=== PATIENT | male | born 1950 | race African-American/Black ===

== ENCOUNTER 2017-03-29 11:07 | Inpatient (IN) | payer MEDICARE ==
[~2017-03-29] VITALS: Ht 182.9 cm; Wt 84.2 kg
[2017-03-29 11:58] LABS: HEMATOCRIT 40.1 % (39.2-51.8); HEMOGLOBIN 12.7 g/dL (13.7-18.0); WHITE BLOOD COUNT 5.1 x10^3/uL (3.4-10)
[2017-03-29] MEDS ORDERED: SODIUM CHLORIDE FLUSH 10ML SYR IVF ONE (12:00)
[2017-03-29 12:13] LABS: ASPARTATE AMINO TRANSFERASE 12 U/L (15-37); BLOOD UREA NITROGEN 16 mg/dL (7-18)
[2017-03-29 12:17] LABS: IS PT STATUS REG ER OR PRE ER? YES
[2017-03-29] MEDS ORDERED: SODIUM CHLORIDE FLUSH 10ML SYR IVF PRN (13:00)
[2017-03-29] MEDS ORDERED: ENALAPRILAT 1.25 MG/ML, 2ML IVPush PRN (14:00)
[2017-03-29] MEDS ORDERED: ONDANSETRON 2MG/ML, 2ML IVPush PRN (14:00)
[2017-03-29] MEDS ORDERED: BISACODYL 10 MG SUPP PR PRN (14:00)
[2017-03-29] MEDS ORDERED: POTASSIUM CHLORIDE 20 MEQ in SODIUM CHLORIDE 0.9% 250 ML IV ONE (14:00)
[2017-03-29] MEDS ORDERED: ONDANSETRON ODT 4 MG PO PRN (14:00)
[2017-03-29] MEDS ORDERED: HYDROcodone/APAP 5/325 TABLET PO PRN (14:00)
[2017-03-29] MEDS ORDERED: DOCUSATE 100 MG CAPSULE PO PRN (14:00)
[2017-03-29] MEDS ORDERED: ENOXAPARIN 40 MG/0.4 ML SQ SCH (14:00)
[2017-03-29] MEDS ORDERED: ACETAMINOPHEN 325 MG TABLET PO PRN (14:00)
[2017-03-29] MEDS ORDERED: TRAZODONE 50MG TABLET PO PRN (14:00)
[2017-03-29 15:03] LABS: TOTAL IRON BINDING CAPACITY 187 mcg/dL (250-450)
[2017-03-29 15:12] LABS: IS PT STATUS REG ER OR PRE ER? NO
[2017-03-29 16:00] VITALS: BP 168/76
[2017-03-29] MEDS: NICOTINE 7 MG/24 HR PATCH.TD24 TD SCH (17:19)
[2017-03-29 17:28] VITALS: BP 148/79
[2017-03-29 18:34] VITALS: BP_SYST 185; BP_SYST 191; BP_DIAS 89; BP_DIAS 98
[2017-03-29 18:55] VITALS: BP 156/91
[2017-03-29] MEDS: LISINOPRIL 10 MG TABLET PO SCH (20:50)
[2017-03-29 20:54] LABS: IS PT STATUS REG ER OR PRE ER? NO
[2017-03-30 02:36] VITALS: BP 156/91
[2017-03-30 05:30] LABS: HEMATOCRIT 34.9 % (39.2-51.8); HEMOGLOBIN 11.1 g/dL (13.7-18.0); WHITE BLOOD COUNT 5.4 x10^3/uL (3.4-10)
[2017-03-30 05:34] LABS: BLOOD UREA NITROGEN 17 mg/dL (7-18)
[2017-03-30] MEDS ORDERED: ASPIRIN 325 MG TABLET PO SCH (06:00)
[2017-03-30 06:36] VITALS: BP_SYST 153; BP_SYST 166; BP_DIAS 100; BP_DIAS 98
[2017-03-30] MEDS: LISINOPRIL 10 MG TABLET PO SCH (07:54)
[2017-03-30] MEDS ORDERED: GADOBUTROL 7.5 MMOL/7.5 ML PFS ONE (11:41)
[2017-03-30] MEDS ORDERED: ENOXAPARIN 40 MG/0.4 ML SQ SCH (14:00)
[2017-03-30] MEDS: NICOTINE 7 MG/24 HR PATCH.TD24 TD SCH (14:08)
[2017-03-30] MEDS ORDERED: ONDANSETRON 2MG/ML, 2ML IVPush PRN (15:30)
[2017-03-30] MEDS ORDERED: ACETAMINOPHEN 325 MG TABLET PO PRN (15:30)
[2017-03-30] MEDS ORDERED: HYDROcodone/APAP 5/325 TABLET PO PRN (15:30)
[2017-03-30] MEDS ORDERED: ONDANSETRON ODT 4 MG PO PRN (15:30)
[2017-03-30] MEDS ORDERED: BISACODYL 10 MG SUPP PR PRN (15:30)
[2017-03-30] MEDS ORDERED: ENALAPRILAT 1.25 MG/ML, 2ML IVPush PRN (15:30)
[2017-03-30 15:43] VITALS: BP_SYST 172; BP_SYST 176; BP_DIAS 90; BP_DIAS 92
[2017-03-30] MEDS ORDERED: POTASSIUM CHLORIDE 20 MEQ TAB.ER.PRT PO ONE (16:00)
[2017-03-31] MEDS ORDERED: IRON SUCROSE COMPLEX 100MG/5ML IV SCH (09:00)
[2017-03-31] MEDS ORDERED: AMLODIPINE 5 MG TABLET PO SCH (09:00)
== END 2017-03-30 16:30 | disposition left against medical advice (07) | DRG 64 ==
LOC: ED 12:41 → EDIP 12:42 → ED 12:44 → 4WST 14:57
PROVIDERS: ADMIT Internal Medicine; ATTEND Internal Medicine
DX: I63.512 Cerebral infarction due to unspecified occlusion or stenosis of left middle cerebral artery (principal); G92 Toxic encephalopathy; I10 Essential (primary) hypertension; F12.90 Cannabis use, unspecified, uncomplicated; F17.210 Nicotine dependence, cigarettes, uncomplicated; I16.0 Hypertensive urgency; I73.9 Peripheral vascular disease, unspecified; N28.9 Disorder of kidney and ureter, unspecified; Z53.21 Procedure and treatment not carried out due to patient leaving prior to being seen by health care provider
CPT/HCPCS: 36415; 70450; 70553; 71010; 80048; 80053; 80061; 81003; 82140; 82962; 83540; 83550; 83605; 84484; 85025; 85610; 85730; 93005; 99285; A9585; J1650; J3480; 92523-GN; J7050